=== PATIENT | female | born 1975 | race Caucasian/White ===

== ENCOUNTER 2017-03-29 21:51 | Emergency (ER) | payer OTHER ==
[2017-03-30 00:58] VITALS: BP 99/65
== END 2017-03-30 00:58 | disposition home or self-care (01) ==
LOC: ED 21:51
DX: S90.32XA Contusion of left foot, initial encounter (principal); Y93.39 Activity, other involving climbing, rappelling and jumping off; Y92.89 Other specified places as the place of occurrence of the external cause; Y99.8 Other external cause status

== ENCOUNTER 2018-01-05 22:13 | Emergency (ER) | payer OTHER ==
[~2018-01-05] VITALS: Ht 152.4 cm; Wt 62.1 kg
[2018-01-05 22:16] VITALS: Ht 152.4 cm; Wt 62.1 kg
[2018-01-06 00:50] VITALS: BP 105/71
== END 2018-01-06 00:51 | disposition home or self-care (01) ==
LOC: ED 22:13
DX: L60.0 Ingrowing nail (principal); Z88.1 Allergy status to other antibiotic agents
CPT/HCPCS: J2001

== ENCOUNTER 2018-01-07 13:11 | Emergency (ER) | payer OTHER ==
[~2018-01-07] VITALS: Ht 167.6 cm; Wt 60.3 kg
[2018-01-07 13:35] VITALS: BP 105/55; Ht 167.6 cm; Wt 60.3 kg
== END 2018-01-07 15:59 | disposition home or self-care (01) ==
LOC: ED 13:11
DX: L60.0 Ingrowing nail (principal); Z88.1 Allergy status to other antibiotic agents

== ENCOUNTER 2019-06-06 08:07 | Emergency (ER) | payer OTHER ==
[~2019-06-06] VITALS: Ht 162.6 cm; Wt 59.6 kg
[2019-06-06 08:10] VITALS: Ht 162.6 cm; Wt 59.6 kg
[2019-06-06 08:54] LABS: microscopic required? YES; urine erythrocyte NEGATIVE (NEGATIVE)
[2019-06-06 09:17] LABS: PLATELET COUNT 174 x10^3mcL (130-400)
[2019-06-06 09:24] LABS: RED CELL DISTRIBUTION WIDTH 14.9 % (11.5-14.5)
[2019-06-06 09:28] LABS: ALBUMIN 3.5 g/dL (3.4-5.0); ALKALINE PHOSPHATASE 68 U/L (46-116); ALT/SGPT 21 U/L (14-59); AST/SGOT 18 U/L (15-37); BILIRUBIN TOTAL 0.4 mg/dL (0.20-1.00); CALCIUM 7.9 mg/dL (8.5-10.1); CARBON DIOXIDE 26.8 mmol/L (21-32); CHLORIDE SERUM 102 mmol/L (98-107); CREATININE SERUM 0.8 mg/dL (0.6-1.0); GFR1 > 60 mL/min; GLUCOSE SERUM 80 mg/dL (74-106); LIPASE 122 IU/L (73-393); SODIUM SERUM 140 mmol/L (136-145)
[2019-06-06 09:36] LABS: POTASSIUM SERUM 2.9 mmol/L (3.5-5.1)
[2019-06-06 10:10] LABS: BAND NEUTROPHIL 8 % (0-10); BASOPHIL 0 % (0-2); METAMYELOCTE 1 % (0-2); MONOCYTE 9 % (0-7); SEGMENTED NEUTROPHILS 64 % (37-75)
[2019-06-06 10:11] LABS: PLATELET MORPHOLOGY PLATELETS NORMAL; rbc morphology (normal/abnorm) NORMAL (NORMAL)
[2019-06-06 15:10] VITALS: BP 98/64
== END 2019-06-06 15:10 | disposition home or self-care (01) ==
LOC: ED 08:07
PROVIDERS: Emergency Medicine
DX: E87.6 Hypokalemia (principal); D72.819 Decreased white blood cell count, unspecified; R19.7 Diarrhea, unspecified; Z88.1 Allergy status to other antibiotic agents; Z98.890 Other specified postprocedural states
CPT/HCPCS: J3480; J7030; J7040